=== PATIENT | female | born 1975 | race Caucasian/White ===

== ENCOUNTER → 2020-10-10 | Outpatient (CLI) | payer OTHER ==
[2020-10-10 12:12] VITALS: BP 128/74
--- NOTE | 2020-10-10 12:47 | REP ---
INDICATION: R BREAST STEREO BX/CALCS. COMPARISON: None. TECHNIQUE: The procedure was performed under the direct supervision of Dr. Zaidi. The risks and benefits of the procedure were explained to the patient and informed consent was obtained. The patient has a history of a cluster of indeterminate calcifications in the right breast seen on a previous mammogram from [facility] performed on 09/21/2020. A craniocaudal approach was utilized. The calcifications were localized using stereotactic mammographic guidance. 1% Xylocaine was used as a local anesthetic. An 10 gauge, suction assisted Mammotome needle was inserted and 8 core biopsy samples were obtained. Specimen radiograph demonstrates the presence of calcifications to be within the specimen. A marker clip was placed at the biopsy site. The patient tolerated the procedure well and there were no immediate complications. After the appropriate amount of monitored convalescence, the patient was discharged from the department. FINDINGS: None IMPRESSION: Stereotactic right breast biopsy with marker clip placement. <Electronically signed by Vadim Kirk > 10/10/20 1207 <Electronically signed by Palmer Zaidi > 10/10/20 1242
--- NOTE | 2020-10-10 13:00 | REP ---
INDICATION: R BREAST STERIO BX/CALCS. COMPARISON: Comparison mammography September 21, 2020.. TECHNIQUE: Specimen radiography. Two views. FINDINGS: Numerous calcifications from the micro calcific grouping seen in-vivo in the right breast are located in 1 of the removed biopsy specimens. IMPRESSION: Specimen radiography shows the micro calcific grouping within the specimen. <Electronically signed by Palmer Zaidi > 10/10/20 1257
--- NOTE | 2020-10-10 13:05 | REP ---
INDICATION: R BREAST STERIO BX/CALCS. Marker clip placement views. COMPARISON: Comparison mammography 21 September 2020. TECHNIQUE: Craniocaudal and mediolateral views of the right breast are obtained. FINDINGS: A needle biopsy marker clip is noted at the site where previous mammography showed the micro calcific grouping in the posterior 3rd of the right breast inferior medial quadrant near the edge of the film. Marker clip is in good position. There is no visible hematoma. Some dermal thickening is seen post biopsy. IMPRESSION: Marker clip in good position. The micro calcific grouping is not visible on post biopsy imaging. <Electronically signed by Palmer Zaidi > 10/10/20 [id number]
== END ==
LOC: M WHCPRO 10:02
PROVIDERS: ATTEND Family Medicine
DX: N60.81 Other benign mammary dysplasias of right breast (principal)